=== PATIENT | male | born 1990 | race Caucasian/White ===

== ENCOUNTER 2021-09-13 19:20 | Emergency (ER) | payer BC ==
[2021-09-13] MEDS ORDERED: Lidocaine 1% 20 ML MDV INJECT SCH (19:30)
--- NOTE | 2021-09-13 19:57 | EDM.PDOC ---
ED HPI GENERAL MEDICAL PROBLEM - General Chief Complaint: Upper Extremity Injury/Pain Stated Complaint: laceration Time Seen by Provider: 09/13/21 19:25 Source of Information: Reports: Patient History Limitations: Reports: No Limitations - History of Present Illness INITIAL COMMENTS - FREE TEXT/NARRATIVE: 30 YO WM PRESENTS TO ER COMPLAINING OF LEFT FOREARM LACERATION FROM A UTILITY KNIFE. PT REPORTS HE WAS WORKING AND ACCIDENTALLY CUT THE DORSAL ASPECT OF LEFT MID FOREARM CAUSING A 8CM LACERATION. PT REPORTS LAST TETANUS WAS 3 YEARS AGO. PT REPORTS BLEEDING CONTROLLED AND DENIES ANY FUNCTIONAL DEFICITS. PT REPORTS FULL AROM OF LEFT WRIST/HAND/ELBOW. Onset: Today Onset Time: 19:00 Location: Reports: Upper Extremity, Left Severity: Mild Improves with: Reports: None Worsens with: Reports: None Associated Symptoms: Reports: No Other Symptoms - Related Data Allergies Allergy/AdvReac Type Severity Reaction Status Date / Time No Known Drug Allergies Allergy Cannot Verified 06/26/15 12:14 Remember Home Meds: Home Meds Ibuprofen [Motrin] 400 mg PO Q6H PRN 7 Days tablet 05/06/15 [Rx] Past Medical History - Past Health History Medical/Surgical History: Denies Medical/Surgical History Social & Family History - Living Situation & Occupation Living situation: Reports: Occupation: Employed Review of Systems - Review of Systems Review Of Systems: See Below Constitutional: Reports: No Symptoms Eyes: Reports: No Symptoms Ears: Reports: No Symptoms Nose: Reports: No Symptoms Mouth/Throat: Reports: No Symptoms Respiratory: Reports: No Symptoms Cardiovascular: Reports: No Symptoms GI/Abdominal: Reports: No Symptoms Genitourinary: Reports: No Symptoms Skin: Reports: Wound (8CM LACERATION TO MID FOREARM DORSAL ASPECT) Neurological: Reports: No Symptoms Psychiatric: Reports: No Symptoms ED EXAM, GENERAL - Physical Exam Exam: See Below Exam Limited By: No Limitations General Appearance: Alert, WD/WN, No Apparent Distress Eye Exam: Bilateral Eye: PERRL Head: Atraumatic, Normocephalic Neck: Normal Inspection, Supple, Non-Tender, Full Range of Motion Respiratory/Chest: No Respiratory Distress, Lungs Clear, Normal Breath Sounds, No Accessory Muscle Use, Chest Non-Tender Cardiovascular: Normal Peripheral Pulses, Regular Rate, Rhythm, No Edema, No Gallop, No JVD, No Murmur, No Rub GI/Abdominal: Normal Bowel Sounds, Soft, Non-Tender, No Organomegaly, No Distention, No Abnormal Bruit, No Mass Extremities: Normal Range of Motion, Non-Tender, No Pedal Edema, Normal Capillary Refill Neurological: Alert, Oriented, CN II-XII Intact, Normal Cognition, Normal Gait, Normal Reflexes, No Motor/Sensory Deficits Skin Exam: Wound/Incision (8CM LACERATION TO MID FOREARM DORSAL ASPECT) ED TRAUMA EXTREMITY PROCEDURES - Laceration/Wound Repair Left Distal Arm Lac/Wound Length In cm: 8 Appearance: Superficial Anesthetic Type: Local Local Anesthesia - Lidocaine (Xylocaine): 1% Plain Local Anesthetic Volume: Other (8) Skin Prep: Chlorhexidine (Hibiciens), Saline Exploration/Debridement/Repair: Wound Explored, In a Bloodless Field Closed With: Sutures Suture Size: 4-0 # of Sutures: 6 Suture Type: Nylon, Simple Sterile Dressing Applied: Provider Tetanus Status Addressed: Yes Complications: No Departure - Departure Time of Disposition: 20:10 Disposition: Home, Self-Care 01 Condition: Good Clinical Impression: Laceration of forearm Qualifiers: Encounter type: initial encounter Laterality: left Qualified Code(s): S51.812A - Laceration without foreign body of left forearm, initial encounter - Discharge Information Instructions: Laceration Care, Adult, [id number] Referrals: Rose Singletary MD [Physician] - Forms: ED Department Discharge Additional Instructions: 1. DISCHARGE HOME 2. WOUND INSTRUCTIONS GIVEN 3. SUTURE REMOVAL 10 DAYS 4. KEEP CLEAN/DRY 5. RETURN TO ER FOR WORSENING SYMPTOMS 6. FOLLOW P WITH PCP FOR FURTHER EVALUATION NEEDED - Assessment/Plan Assessment:: 1. 8CM LACERATION TO MID FOREARM DORSAL ASPECT Plan: 1. DISCHARGE HOME 2. WOUND INSTRUCTIONS GIVEN 3. SUTURE REMOVAL 10 DAYS 4. KEEP CLEAN/DRY 5. RETURN TO ER FOR WORSENING SYMPTOMS 6. FOLLOW P WITH PCP FOR FURTHER EVALUATION NEEDED
[2021-09-14 12:34] VITALS: BP 160/100; PULSE 83
== END 2021-09-13 20:15 | disposition home or self-care (01) ==
LOC: KA.ED 19:20
DX: S51.812A Laceration without foreign body of left forearm, initial encounter (principal); W26.0XXA Contact with knife, initial encounter; Y99.0 Civilian activity done for income or pay
CPT/HCPCS: 12004; 99282; 99282-25